=== PATIENT | female | born 1965 | race Caucasian/White ===

== ENCOUNTER → 2021-08-13 | Day surgery (SDC) | payer BC ==
[~2021-08-13] MED LIST: ACETAMINOPHEN 1000 MG/100 ML 100 ML IV ONE; ACETAMINOPHEN/CODEINE 300MG - 30MG TAB ONE; CENTRUM ADULTS1 EACH PO; DEXAMETHASONE SOD PHOS 10 MG/1 ML VIAL ONE; EPINEPHRINE HCL 1:1000 1ML 1 MG/ML AMP ONE; FLUOXETINE HCL10 MG PO; LIDOCAINE 1% W/EPINEPHRINE 20 ML VIAL ONE; VITAMIN A10000 UNIT PO; VITAMIN B-121000 MCG PO; VITAMIN C500 MG PO
[2021-08-13 09:50] VITALS: BP 123/86
== END | disposition home or self-care (01) ==
LOC: OR 05:39
PROVIDERS: ATTEND Otolaryngology Otolaryngology/Facial Plastic Surgery
DX: J34.2 Deviated nasal septum (principal); J34.89 Other specified disorders of nose and nasal sinuses; G47.33 Obstructive sleep apnea (adult) (pediatric); F41.9 Anxiety disorder, unspecified; Z20.822 Contact with and (suspected) exposure to COVID-19
CPT/HCPCS: 30520; 88302; 93005; J0131; J0171; J1100; U0002; 88304; 88311

== ENCOUNTER 2021-12-17 05:27 | Observation (INO) | payer BC ==
[~2021-12-17] VITALS: Ht 160 cm; Wt 84.8 kg
[~2021-12-17 05:27] MED LIST changes: -ACETAMINOPHEN 1000 MG/100 ML 100 ML IV ONE; -ACETAMINOPHEN/CODEINE 300MG - 30MG TAB ONE; +BUSPIRONE HCL5 MG PO; -DEXAMETHASONE SOD PHOS 10 MG/1 ML VIAL ONE; -EPINEPHRINE HCL 1:1000 1ML 1 MG/ML AMP ONE; +LEVOTHYROXINE50 MCG PO; -LIDOCAINE 1% W/EPINEPHRINE 20 ML VIAL ONE; +MAGNESIUM OXID400 MG PO
[2021-12-17] MEDS ORDERED: LIDOCAINE 2%/ EPINEPHRINE 20ML MDV ONE (07:08)
[2021-12-17] MEDS ORDERED: BUPIVACAINE 0.25%/EPI 30ML SDV INJ ONE (08:04)
[2021-12-17] MEDS ORDERED: LACTATED RINGER'S 1,000 ML INJ SCH (09:15)
[2021-12-17] MEDS ORDERED: PROMETHAZINE 25MG/ NS 50ML (IV) IV PRN ×2 (09:15→19:15)
[2021-12-17 10:20] VITALS: BP 129/81
[2021-12-17] MEDS: MEPERIDINE HCL INJ 25 MG/ML VIAL IV PRN ×2 (10:48→17:50)
[2021-12-17] MEDS ORDERED: DEXAMETHASONE SOD PHOS INJ 4 MG/ML SDV ONE (11:45)
[2021-12-17] MEDS ORDERED: LIDOCAINE HCL 2% LOCAL INJ 5 ML SDV VIAL INJ ONE (11:45)
[2021-12-17] MEDS ORDERED: GLYCOPYRROLATE INJ 0.2 MG/ML VIAL ONE (11:45)
[2021-12-17] MEDS ORDERED: EPHEDRINE SULFATE INJ 50 MG/ML VIAL ONE (11:45)
[2021-12-17] MEDS ORDERED: SEVOFLURANE INHAL SOLN 250 ML PEN BTL ONE (11:45)
[2021-12-17] MEDS ORDERED: POVIDONE IODINE 0.05% 0.05 % ML PO ONE (11:45)
[2021-12-17] MEDS ORDERED: NEOSTIGMINE 1 MG/ML 10ML VIAL ONE (11:45)
[2021-12-17] MEDS ORDERED: ROCURONIUM BROMIDE 10 MG/ML 5ML VIAL IV ONE (11:45)
[2021-12-17] MEDS ORDERED: PROPOFOL IV EMULSION 10 MG/ML 20 ML VIAL ONE (11:45)
[2021-12-17] MEDS ORDERED: ONDANSETRON HCL INJ 2MG/ML 2ML 2 MG/ML VIAL ONE (11:45)
[2021-12-17] MEDS: HYDROCODONE BIT/ACETAMINOPHEN 2.5 MG/108MG PER 5 ML SOLUTION PO PRN ×2 (12:10→22:46)
[2021-12-17 12:14] VITALS: BP 129/81
[2021-12-17] MEDS ORDERED: MIDAZOLAM HCL 2 MG/2 ML VIAL ONE (12:34)
[2021-12-17] MEDS ORDERED: FENTANYL CITRATE/PF 100MCG/2 ML INJ ONE (12:34)
[2021-12-17] MEDS: AMOXICILLIN SUSP 250 MG/5 ML SUSP PO SCH ×2 (15:13→22:23)
[2021-12-17 16:00] VITALS: BP 117/89
[2021-12-17] MEDS: ACETAMINOPHEN/CODEINE 300MG - 30MG TAB PO PRN (16:26)
[2021-12-17] MEDS ORDERED: MEPERIDINE HCL INJ 25 MG/ML VIAL IV PRN (19:15)
[2021-12-17 20:00] VITALS: BP 115/77
[2021-12-18] VITALS: BP 131/81
[2021-12-18 04:00] VITALS: BP 108/75
[2021-12-18] MEDS: HYDROCODONE BIT/ACETAMINOPHEN 2.5 MG/108MG PER 5 ML SOLUTION PO PRN ×2 (05:19→12:20)
[2021-12-18] MEDS: AMOXICILLIN SUSP 250 MG/5 ML SUSP PO SCH (06:04)
[2021-12-18 07:20] VITALS: BP 117/86
[2021-12-18 07:21] VITALS: BP 117/86
[2021-12-18] MEDS: ACETAMINOPHEN/CODEINE 300MG - 30MG TAB PO PRN (09:18)
== END 2021-12-18 14:56 | disposition home or self-care (01) ==
LOC: OR 05:27 → PACU V 09:08 → MED/SURG 10:12
PROVIDERS: ADMIT Otolaryngology Otolaryngology/Facial Plastic Surgery; ATTEND Otolaryngology Otolaryngology/Facial Plastic Surgery
DX: G47.33 Obstructive sleep apnea (adult) (pediatric) (principal); E66.9 Obesity, unspecified; Z68.33 Body mass index [BMI] 33.0-33.9, adult; E03.9 Hypothyroidism, unspecified
CPT/HCPCS: 42145; 42826; 88304; 93005; G0378 ×2; J1100; J2001 ×2; J2175; J2250; J2405; J2704; J2710; J3010